=== PATIENT | female | born 2000 ===

== ENCOUNTER 2023-12-11 15:08 | Outpatient (CLI) | payer OTHER ==
[~2023-12-11] VITALS: Ht 179.1 cm; Wt 85.1 kg
[2023-12-11 15:23] VITALS: BP 131/70
[2023-12-11] MEDS ORDERED: PRENTAB9 PO (15:34)
== END 2023-12-11 16:24 ==
LOC: M LDO 15:08
PROVIDERS: ATTEND Obstetrics & Gynecology
DX: O46.92 Antepartum hemorrhage, unspecified, second trimester (principal); Z3A.20 20 weeks gestation of pregnancy; O36.8120 Decreased fetal movements, second trimester, not applicable or unspecified; O26.892 Other specified pregnancy related conditions, second trimester; R25.2 Cramp and spasm
CPT/HCPCS: 59025; G0463